=== PATIENT | female | born 1995 | race Caucasian/White ===

== ENCOUNTER 2021-12-09 10:21 | Emergency (ER) | payer OTHER ==
[2021-12-09 10:29] VITALS: TEMP 98.6; BMI 28.1
[2021-12-09] MEDS ORDERED: ONDANSETRON 4 MG/2 ML VIAL IVPUSH ONE (11:43)
[2021-12-09] MEDS ORDERED: SODIUM CHLORIDE 0.9% 500 ML INFUS.BAG IV ONE (11:47)
[2021-12-09 11:54] LABS: URINE APPEARANCE CLEAR; URINE BILIRUBIN NEGATIVE (NEGATIVE); URINE COLOR YELLOW; URINE GLUCOSE (UA) NEGATIVE (NEGATIVE); URINE KETONE TRACE (NEGATIVE); URINE LEUK ESTERASE NEGATIVE (NEGATIVE); URINE NITRITE NEGATIVE (NEGATIVE); URINE PROTEIN NEGATIVE (NEGATIVE)
[2021-12-09 11:58] LABS: HCG,QUALITATIVE URINE Positive
[2021-12-09] MEDS ORDERED: ACETAMINOPHEN 1000 MG/100 ML BAG IVPB ONE (11:58)
[2021-12-09] MEDS ORDERED: ACETAMINOPHEN INJECTION 100 ML IVPB ONE (11:59)
[2021-12-09] MEDS ORDERED: ONDANSETRON 4 MG/2 ML VIAL ONE (12:00)
[2021-12-09 12:33] LABS: BASO % 0.3 % (0-2.0); EOS % 0.6 % (0-4.5); HEMATOCRIT 35.6 % (32.4-45.2); HEMOGLOBIN 11.8 GM/dL (10.7-15.3); LYMPH % 26.3 % (8-40); MCH 31.4 pg (25.7-33.7); MCHC 33.2 g/dl (32.0-36.0); MEAN CELL VOLUME 94.4 fl (80-96); MONO % 8.2 % (3.8-10.2); NEUT % 64.6 % (42.8-82.8); PLATELET COUNT 237 10^3/uL (134-434); RBC 3.77 M/mm3 (3.60-5.2); RDW 13.2 % (11.6-15.6); WHITE BLOOD COUNT 4.2 K/mm3 (4.0-10.0)
[2021-12-09 12:54] LABS: CALCIUM 8.8 mg/dL (8.5-10.1)
[2021-12-09 12:55] LABS: ALBUMIN 3.6 g/dl (3.4-5.0); BLOOD UREA NITROGEN 7.5 mg/dL (7-18)
[2021-12-09 12:58] LABS: CREATININE 0.7 mg/dL (0.55-1.3)
[2021-12-09 13:00] LABS: BILIRUBIN,TOTAL 0.3 mg/dL (0.2-1)
[2021-12-09 15:03] VITALS: BP 112/70; PULSE 90
== END 2021-12-09 15:03 | disposition home or self-care (01) ==
LOC: JER 10:21
PROC: 3E033GC Introduction of Other Therapeutic Substance into Peripheral Vein, Percutaneous Approach (ICD-10-PCS; principal; 2021-12-09)
DX: O36.4XX0 Maternal care for intrauterine death, not applicable or unspecified (principal); Z3A.09 9 weeks gestation of pregnancy
CPT/HCPCS: 36415; 76801-TC; 80053; 81003; 84702; 84703; 85025; 86850; 86900; 86901; 87086; 99284-25

== ENCOUNTER 2021-12-13 02:22 | Inpatient (IN) | payer OTHER ==
[2021-12-13 02:45] VITALS: BMI 28.3
[2021-12-13] MEDS ORDERED: SODIUM CHLORIDE 2,245 ML IV ONE (02:48)
[2021-12-13] MEDS ORDERED: ACETAMINOPHEN 1000 MG/100 ML BAG IVPB ONE ×3 (02:50→13:45)
[2021-12-13] MEDS ORDERED: AMPICILLIN - 1 GM in SODIUM CHLORIDE 100 ML IVPB ONE (03:06)
[2021-12-13] MEDS ORDERED: GENTAMICIN 80 MG PREMIXED IVPB 80 MG/100 ML BAG IVPB ONE ×2 (03:07→03:25)
[2021-12-13] MEDS ORDERED: CLINDAMYCIN 600MG PREMIX IVPB 600 MG/50 ML BAG IVPB ONE ×2 (03:07→03:25)
[2021-12-13] MEDS ORDERED: DIPHTH,PERTUSS(ACELL),TET 0.5 ML DISP.SYRIN IM ONE ×2 (03:22→04:27)
[2021-12-13] MEDS ORDERED: ACETAMINOPHEN INJECTION 100 ML IVPB ONE ×2 (03:24→10:02)
[2021-12-13] MEDS ORDERED: AMPICILLIN SODIUM 1 GM VIAL ONE (03:24)
[2021-12-13 03:50] LABS: BASO % 0.1 % (0-2.0); EOS % 0.4 % (0-4.5); HEMATOCRIT 33.5 % (32.4-45.2); HEMOGLOBIN 11.6 GM/dL (10.7-15.3); LYMPH % 4.8 % (8-40); MCH 32.1 pg (25.7-33.7); MCHC 34.5 g/dl (32.0-36.0); MEAN CELL VOLUME 92.9 fl (80-96); MEAN PLT VOLUME 8.6 fl (7.5-11.1); MONO % 10.3 % (3.8-10.2); NEUT % 84.4 % (42.8-82.8); PLATELET COUNT 186 10^3/uL (134-434); RBC 3.61 M/mm3 (3.60-5.2); RDW 13.4 % (11.6-15.6); WHITE BLOOD COUNT 3.8 K/mm3 (4.0-10.0)
[2021-12-13 03:58] LABS: INR 1.16 (0.83-1.09); PROTHROMBIN TIME (PATIENT) 13.4 SEC (9.7-13.0)
[2021-12-13 04:01] LABS: ACTIVATED PTT 26.9 SECONDS (25.2-36.5)
[2021-12-13 04:08] LABS: CHLORIDE 108 mmol/L (98-107); SODIUM 137 mmol/L (136-145)
[2021-12-13 04:09] LABS: CALCIUM 8.2 mg/dL (8.5-10.1)
[2021-12-13 04:10] LABS: ALBUMIN 3.3 g/dl (3.4-5.0); ANION GAP 6 MMOL/L (8-16); CO2 23 mmol/L (21-32); GLUCOSE,RANDOM 93 mg/dL (74-106)
[2021-12-13 04:13] LABS: CREATININE 0.6 mg/dL (0.55-1.3); SGOT/AST 8 U/L (15-37); SGPT/ALT 16 U/L (13-61)
[2021-12-13 04:15] LABS: BILIRUBIN,TOTAL 0.2 mg/dL (0.2-1); TOT PROT 6.5 g/dl (6.4-8.2)
[2021-12-13 04:16] LABS: ALK PHOS 57 U/L (45-117)
[2021-12-13 04:26] LABS: VENOUS BASE EXCESS -4.6 mmol/L (-2-2); VENOUS O2 SATURATION 66.4 % (70-80); VENOUS PCO2 38.3 mmHg (38-52); VENOUS PH 7.348 (7.310-7.410)
[2021-12-13 05:45] LABS: PH,URINE 6.5 (5.0-8.0); URINE APPEARANCE CLEAR; URINE BILIRUBIN NEGATIVE (NEGATIVE); URINE COLOR YELLOW; URINE GLUCOSE (UA) NEGATIVE (NEGATIVE); URINE KETONE NEGATIVE (NEGATIVE); URINE LEUK ESTERASE NEGATIVE (NEGATIVE); URINE NITRITE NEGATIVE (NEGATIVE); URINE PROTEIN NEGATIVE (NEGATIVE)
[2021-12-13] MEDS ORDERED: METOCLOPRAMIDE HCL INJECTION 10 MG/2 ML VIAL ONE (09:39)
[2021-12-13] MEDS ORDERED: MAG HYDROX/AL HYDROX/SIMETH 30 ML UNIT-DOSE CUP ONE (09:40)
[2021-12-13] MEDS ORDERED: FAMOTIDINE 20 MG/50 ML IVPB 20 MG/50 ML MG IVPB ONE (09:40)
[2021-12-13] MEDS ORDERED: LACTATED RINGERS SOLUTION 1,000 ML/1,000 ML INFUS.BAG IV SCH (10:30)
[2021-12-13] MEDS ORDERED: AMPICILLIN - 1 GM in SODIUM CHLORIDE 100 ML IVPB SCH (12:00)
[2021-12-13] MEDS ORDERED: MIDAZOLAM HCL 2 MG/2 ML SINGLE DOSE VIAL ONE ×2 (12:11→12:27)
[2021-12-13] MEDS ORDERED: CLINDAMYCIN 600MG PREMIX IVPB 600 MG/50 ML BAG IVPB SCH (12:30)
[2021-12-13] MEDS ORDERED: CLINDAMYCIN 600 MG PREMIX BAG IVPB ONE (12:31)
[2021-12-13] MEDS ORDERED: ACETAMINOPHEN 325 MG TABLET (FP) PO PRN (12:55)
[2021-12-13] MEDS ORDERED: ONDANSETRON 4 MG/2 ML VIAL IVPUSH PRN (12:55)
[2021-12-13] MEDS ORDERED: oxyCODONE HCL 5 MG TABLET PO PRN (12:57)
[2021-12-13] MEDS ORDERED: LACTATED RINGERS SOLUTION 1,000 ML IV SCH ×2 (13:00→13:02)
[2021-12-13] MEDS: IBUPROFEN 600 MG TABLET (FP) PO PRN (17:03)
[2021-12-13] MEDS: CLINDAMYCIN 900 MG PREMIX IVPB 900 MG/50 ML BAG IVPB SCH (18:12)
[2021-12-13] MEDS ORDERED: AMPICILLIN SODIUM 2 GM VIAL ONE (20:42)
[2021-12-13] MEDS ORDERED: SODIUM CHLORIDE 100 ML IVPB ONE (20:42)
[2021-12-13] MEDS: AMPICILLIN - 2 GM in SODIUM CHLORIDE 100 ML IVPB SCH (20:47)
[2021-12-14] MEDS: IBUPROFEN 600 MG TABLET (FP) PO PRN ×3 (01:21→19:36)
[2021-12-14] MEDS: CLINDAMYCIN 900 MG PREMIX IVPB 900 MG/50 ML BAG IVPB SCH ×3 (01:21→18:29)
[2021-12-14] MEDS ORDERED: AMPICILLIN SODIUM 2 GM VIAL ONE ×4 (03:13→20:26)
[2021-12-14] MEDS ORDERED: SODIUM CHLORIDE 100 ML IVPB ONE ×4 (03:13→20:27)
[2021-12-14] MEDS: AMPICILLIN - 2 GM in SODIUM CHLORIDE 100 ML IVPB SCH ×4 (03:16→20:40)
[2021-12-14 07:57] LABS: BASO % 0.3 % (0-2.0); EOS % 0.3 % (0-4.5); HEMATOCRIT 34.1 % (32.4-45.2); HEMOGLOBIN 11.7 GM/dL (10.7-15.3); LYMPH % 33.6 % (8-40); MCH 31.9 pg (25.7-33.7); MCHC 34.3 g/dl (32.0-36.0); MEAN CELL VOLUME 93.1 fl (80-96); MEAN PLT VOLUME 8.7 fl (7.5-11.1); MONO % 14.3 % (3.8-10.2); NEUT % 51.5 % (42.8-82.8); PLATELET COUNT 202 10^3/uL (134-434); RBC 3.66 M/mm3 (3.60-5.2); RDW 13.4 % (11.6-15.6); WHITE BLOOD COUNT 2.8 K/mm3 (4.0-10.0)
[2021-12-14] MEDS ORDERED: GENTAMICIN IVPB SCH (10:00)
[2021-12-14] MEDS ORDERED: DEXTROSE 5% IVPB SCH (10:00)
[2021-12-14] MEDS ORDERED: WATER IVPB SCH (10:00)
[2021-12-14] MEDS: GENTAMICIN IVPB SCH (10:46)
[2021-12-14] MEDS: WATER IVPB SCH (10:46)
[2021-12-14] MEDS: DEXTROSE 5% IVPB SCH (10:46)
[2021-12-15] MEDS ORDERED: AMPICILLIN SODIUM 2 GM VIAL ONE (00:56)
[2021-12-15] MEDS ORDERED: SODIUM CHLORIDE 100 ML IVPB ONE (00:56)
[2021-12-15] MEDS: CLINDAMYCIN 900 MG PREMIX IVPB 900 MG/50 ML BAG IVPB SCH ×2 (01:36→09:01)
[2021-12-15] MEDS: AMPICILLIN - 2 GM in SODIUM CHLORIDE 100 ML IVPB SCH ×2 (02:16→09:01)
[2021-12-15 09:00] VITALS: BP 100/68; PULSE 88; TEMP 98.8
[2021-12-15] MEDS: DEXTROSE 5% IVPB SCH (09:01)
[2021-12-15] MEDS: GENTAMICIN IVPB SCH (09:01)
[2021-12-15] MEDS: WATER IVPB SCH (09:01)
== END 2021-12-15 09:58 | disposition home or self-care (01) | DRG 544 ==
LOC: JER 02:22 → JERBED 03:35 → J3W 14:40
PROVIDERS: ADMIT Obstetrics & Gynecology; ATTEND Obstetrics & Gynecology
PROC: 10D17ZZ Extraction of Products of Conception, Retained, Via Natural or Artificial Opening (ICD-10-PCS; principal; 2021-12-13 10:00)
DX: O02.1 Missed abortion (principal); R50.9 Fever, unspecified; U07.1 COVID-19; Z3A.10 10 weeks gestation of pregnancy
CPT/HCPCS: 36415; 71045-TC-FY; 76817-TC; 80053; 81003; 82553; 82803; 83605; 85025; 85610; 85730; 86850; 86900; 86901; 87040; 87086; 88305-TC; 90715; 93005; 93010; 94760; 99285-25; C9803-CS; U0003; U0005

== ENCOUNTER 2022-07-14 13:39 | Emergency (ER) | payer OTHER ==
[2022-07-14 14:08] VITALS: BP 107/79; PULSE 109; RESP 19; TEMP 98.8; BMI 29.2
== END 2022-07-14 20:45 | disposition home or self-care (01) ==
LOC: JER 13:39
DX: B34.9 Viral infection, unspecified (principal)
CPT/HCPCS: 0241U-QW; 99283-25

== ENCOUNTER 2022-07-19 01:53 | Emergency (ER) | payer OTHER ==
[2022-07-19 02:03] VITALS: BP 134/89; PULSE 88; RESP 20; TEMP 98.3; BMI 32.5
[2022-07-19] MEDS ORDERED: ERYTHROMYCIN 0.5% OPHTHALMIC OINTMENT 3.5 GM TUBE OU ONE (02:27)
[2022-07-19] MEDS ORDERED: ERYTHROMYCIN 0.5% OPHTHALMIC OINTMENT 3.5 GM TUBE ONE (02:35)
[2022-07-19 04:05] LABS: EPI CELLS 33 /uL (0-25.1); HYALINE CASTS 0 /uL (0-3.1); URINE APPEARANCE CLEAR; URINE BACTERIA 234 /uL (0-1359); URINE BILIRUBIN NEGATIVE (NEGATIVE); URINE COLOR YELLOW; URINE GLUCOSE (UA) NEGATIVE (NEGATIVE); URINE KETONE NEGATIVE (NEGATIVE); URINE LEUK ESTERASE TRACE (NEGATIVE); URINE NITRITE NEGATIVE (NEGATIVE); URINE PROTEIN NEGATIVE (NEGATIVE); URINE RBC 8 /uL (0-23.9); URINE UROBILINOGEN 0.2 mg/dL (0.2-1.0); URINE WBC 20 /uL (0-25.8)
[2022-07-19] MEDS ORDERED: CEPHALEXIN MONOHYDRATE 500 MG CAPSULE (UD) ONE (04:40)
[2022-07-19] MEDS ORDERED: CEPHALEXIN MONOHYDRATE 500 MG CAPSULE (UD) PO ONE (04:40)
== END 2022-07-19 04:44 | disposition home or self-care (01) ==
LOC: JER 01:53
DX: H10.33 Unspecified acute conjunctivitis, bilateral (principal)
CPT/HCPCS: 0241U-QW; 81003; 87086; 99283-25

== ENCOUNTER 2022-08-01 04:20 | Emergency (ER) | payer OTHER ==
[2022-08-01 04:25] VITALS: BMI 34.0
[2022-08-01] MEDS ORDERED: ONDANSETRON 4 MG/2 ML VIAL IVPUSH ONE (04:47)
[2022-08-01] MEDS ORDERED: ACETAMINOPHEN 1000 MG/100 ML BAG IVPB ONE (04:47)
[2022-08-01] MEDS ORDERED: SODIUM CHLORIDE 0.9% 500 ML INFUS.BAG IV ONE (04:47)
[2022-08-01] MEDS ORDERED: ONDANSETRON 4 MG/2 ML VIAL ONE (04:53)
[2022-08-01] MEDS ORDERED: ACETAMINOPHEN INJECTION 100 ML IVPB ONE (04:53)
[2022-08-01] MEDS ORDERED: DEXTROSE 5%-LACTATED RINGERS 1,000 ML IV ONE (05:30)
[2022-08-01 05:51] VITALS: BP 132/72; PULSE 65; RESP 18; TEMP 98
== END 2022-08-01 07:36 | disposition home or self-care (01) ==
LOC: JER 04:20
PROC: 3E033NZ Introduction of Analgesics, Hypnotics, Sedatives into Peripheral Vein, Percutaneous Approach (ICD-10-PCS; principal; 2022-08-01)
PROC: 3E033GC Introduction of Other Therapeutic Substance into Peripheral Vein, Percutaneous Approach (ICD-10-PCS; 2022-08-01)
DX: R11.2 Nausea with vomiting, unspecified (principal)
CPT/HCPCS: 99284-25

== ENCOUNTER 2022-09-03 03:35 | Inpatient (IN) | payer OTHER ==
[2022-09-03] MEDS: ELECTROLYTE-148 SOLN 1,000 ML IV SCH (03:55)
[2022-09-03] MEDS ORDERED: ACETAMINOPHEN INJECTION 100 ML IVPB ONE (04:06)
[2022-09-03] MEDS ORDERED: OXYTOCIN 20 UNITS in 0.9% NS 20 UNIT/1,000 ML INFUS.BAG IV ONE ×2 (04:06→16:24)
[2022-09-03] MEDS ORDERED: PROPOFOL 40 ML ONE (04:14)
[2022-09-03] MEDS ORDERED: OXYTOCIN 10 UNITS/ML VIAL ONE (04:24)
[2022-09-03] MEDS: OXYTOCIN 20 UNITS in 0.9% NS 20 UNIT/1,000 ML INFUS.BAG IV SCH ×2 (04:25→16:26)
[2022-09-03] MEDS ORDERED: FENTANYL CITRATE/PF 50 MCG/ML VIAL ONE ×2 (04:28→05:05)
[2022-09-03] MEDS ORDERED: ceFAZolin SODIUM 1 GM VIAL ONE (04:32)
[2022-09-03] MEDS ORDERED: DEXAMETHASONE SOD PHOSPHATE 4 MG/1 ML VIAL ONE (04:43)
[2022-09-03] MEDS ORDERED: ONDANSETRON 4 MG/2 ML VIAL ONE (04:43)
[2022-09-03 04:52] LABS: BASO % 0.5 % (0-2.0); EOS % 0.6 % (0-4.5); HEMATOCRIT 39.2 % (32.4-45.2); HEMOGLOBIN 13.3 GM/dL (10.7-15.3); LYMPH % 25.5 % (8-40); MCH 31.3 pg (25.7-33.7); MCHC 33.8 g/dl (32.0-36.0); MEAN CELL VOLUME 92.5 fl (80-96); MEAN PLT VOLUME 11.1 fl (7.5-11.1); MONO % 8.1 % (3.8-10.2); NEUT % 65.3 % (42.8-82.8); PLATELET COUNT 151 10^3/uL (134-434); RBC 4.24 M/mm3 (3.60-5.2); RDW 14.3 % (11.6-15.6); WHITE BLOOD COUNT 6.1 K/mm3 (4.0-10.0)
[2022-09-03 05:00] LABS: INR 0.85 (0.83-1.09); PROTHROMBIN TIME (PATIENT) 9.8 SEC (9.7-13.0)
[2022-09-03 05:03] LABS: ACTIVATED PTT 25.2 SECONDS (25.2-36.5)
[2022-09-03 05:12] LABS: CALCIUM 8.5 mg/dL (8.5-10.1)
[2022-09-03 05:13] LABS: BLOOD UREA NITROGEN 3.8 mg/dL (7-18)
[2022-09-03 05:16] LABS: CREATININE 0.6 mg/dL (0.55-1.3)
[2022-09-03 05:20] LABS: CALCIUM 8.4 mg/dL (8.5-10.1)
[2022-09-03] MEDS ORDERED: ONDANSETRON 4 MG/2 ML VIAL IVPUSH PRN (05:20)
[2022-09-03 05:21] LABS: ALBUMIN 2.4 g/dl (3.4-5.0); BLOOD UREA NITROGEN 3.5 mg/dL (7-18)
[2022-09-03 05:24] LABS: CREATININE 0.5 mg/dL (0.55-1.3)
[2022-09-03 05:25] LABS: BILIRUBIN,TOTAL 0.2 mg/dL (0.2-1); TOT PROT 5.9 g/dl (6.4-8.2)
[2022-09-03] MEDS ORDERED: LABETALOL HCL 5 MG/1 ML (100MG/20 ML VIAL) IVPUSH ONE (05:40)
[2022-09-03] MEDS: HYDROmorphone *PCA* 10MG/50ML DISP.SYRIN PCA SCH ×2 (05:45→08:30)
[2022-09-03] MEDS ORDERED: IBUPROFEN 800 MG/8 ML IJ IVPB PRN (05:50)
[2022-09-03] MEDS ORDERED: METHYLERGONOVINE MALEATE 0.2 MG/1 ML AMP IM PRN (05:50)
[2022-09-03] MEDS: MAGNESIUM 4GM/H20 - 4 GM/100 ML IVPB IVPB SCH (05:53)
[2022-09-03] MEDS ORDERED: hydrALAZINE HCL 20 MG/ML VIAL IVPUSH ONE (06:12)
[2022-09-03] MEDS: MAGNESIUM SULFATE 20GM/500ML - 20 GM/500 ML INFUS.BAG IVPB SCH ×2 (06:20→18:24)
[2022-09-03 06:24] LABS: CORD HCO3 22.3 mmHg (20-29); CORD PCO2 86.5 mmHg (30-78); CORD pH 7.029 (7.14-7.44)
[2022-09-03 06:25] VITALS: BMI 34.8
[2022-09-03 06:25] LABS: CORD BASE EXCESS -9.9 mmol/L (0-2); CORD HCO3 21.9 mmHg (20-29); CORD pH 7.067 (7.14-7.44)
[2022-09-03] MEDS ORDERED: MAGNESIUM SULFATE 20GM/500ML - 20 GM/500 ML INFUS.BAG ONE ×2 (06:26→18:13)
[2022-09-03] MEDS: LABETALOL HCL 100 MG TABLET (FP) PO SCH ×3 (06:30→22:00)
[2022-09-03 06:32] LABS: COCAINE, UR NEGATIVE (NEGATIVE); OPIATES, URI NEGATIVE (NEGATIVE); URINE BARBITURATES NEGATIVE (NEGATIVE)
[2022-09-03 06:33] LABS: METHADONE, UR NEGATIVE (NEGATIVE); PHENCYCLIDINE,URINE NEGATIVE (NEGATIVE)
[2022-09-03] MEDS ORDERED: LABETALOL HCL 100 MG TABLET (FP) ONE ×3 (06:36→22:12)
[2022-09-03] MEDS ORDERED: LABETALOL HCL 200 MG TABLET (FP) ONE ×2 (06:36→10:08)
[2022-09-03 07:00] LABS: URINE AMPHETAMINES NEGATIVE (NEGATIVE); URINE BENZODIAZEPINES NEGATIVE (NEGATIVE)
[2022-09-03] MEDS ORDERED: IBUPROFEN 800 MG/8 ML IJ IVPB ONE (07:48)
[2022-09-03] MEDS ORDERED: HYDROmorphone *PCA* 10MG/50ML DISP.SYRIN ONE (08:28)
[2022-09-03] MEDS ORDERED: ACETAMINOPHEN 325 MG TABLET (FP) ONE ×2 (12:48→20:30)
[2022-09-03 12:50] LABS: MAGNESIUM 5.4 mg/dL (1.8-2.4)
[2022-09-03] MEDS: ACETAMINOPHEN 325 MG TABLET (FP) PO PRN ×2 (12:50→20:30)
[2022-09-04] MEDS ORDERED: oxyCODONE HCL 5 MG TABLET ONE (04:18)
[2022-09-04] MEDS: oxyCODONE HCL 5 MG TABLET PO PRN ×3 (04:27→21:25)
[2022-09-04] MEDS ORDERED: BISACODYL 10 MG SUPP.RECT RC PRN (05:50)
[2022-09-04] MEDS: ACETAMINOPHEN 325 MG TABLET (FP) PO PRN (06:24)
[2022-09-04] MEDS: MAGNESIUM SULFATE 20GM/500ML - 20 GM/500 ML INFUS.BAG IVPB SCH ×3 (06:26→19:32)
[2022-09-04 07:12] LABS: BASO % 0.2 % (0-2.0); EOS % 0.1 % (0-4.5); HEMATOCRIT 36.3 % (32.4-45.2); HEMOGLOBIN 12.3 GM/dL (10.7-15.3); LYMPH % 9.5 % (8-40); MCH 31.3 pg (25.7-33.7); MCHC 33.8 g/dl (32.0-36.0); MEAN CELL VOLUME 92.6 fl (80-96); MEAN PLT VOLUME 10.2 fl (7.5-11.1); MONO % 5.3 % (3.8-10.2); NEUT % 84.9 % (42.8-82.8); PLATELET COUNT 153 10^3/uL (134-434); RBC 3.92 M/mm3 (3.60-5.2); RDW 14.5 % (11.6-15.6)
[2022-09-04] MEDS: LABETALOL HCL 100 MG TABLET (FP) PO SCH ×2 (09:09→21:24)
[2022-09-04] MEDS: IBUPROFEN 600 MG TABLET (FP) PO PRN ×2 (09:09→23:43)
[2022-09-04] MEDS: ELECTROLYTE-148 SOLN 1,000 ML IV SCH (19:32)
[2022-09-04] MEDS: OXYTOCIN 20 UNITS in 0.9% NS 20 UNIT/1,000 ML INFUS.BAG IV SCH (19:32)
[2022-09-04] MEDS: HYDROmorphone *PCA* 10MG/50ML DISP.SYRIN PCA SCH (19:32)
[2022-09-04] MEDS: MAGNESIUM 4GM/H20 - 4 GM/100 ML IVPB IVPB SCH (19:32)
[2022-09-04] MEDS: SIMETHICONE 80 MG TAB.CHEW (FP) PO PRN (21:25)
[2022-09-05] MEDS: oxyCODONE HCL 5 MG TABLET PO PRN ×4 (02:05→22:05)
[2022-09-05] MEDS: LABETALOL HCL 100 MG TABLET (FP) PO SCH ×2 (09:39→22:04)
[2022-09-05] MEDS: SIMETHICONE 80 MG TAB.CHEW (FP) PO PRN ×2 (15:48→22:05)
[2022-09-05] MEDS: IBUPROFEN 600 MG TABLET (FP) PO PRN (17:26)
[2022-09-05] MEDS: ELECTROLYTE-148 SOLN 1,000 ML IV SCH (19:27)
[2022-09-06] MEDS: LABETALOL HCL 100 MG TABLET (FP) PO SCH ×2 (09:15→21:35)
[2022-09-06] MEDS: SIMETHICONE 80 MG TAB.CHEW (FP) PO PRN ×2 (09:16→21:35)
[2022-09-06 09:25] LABS: BASO % 0.3 % (0-2.0); EOS % 0.4 % (0-4.5); HEMATOCRIT 36.2 % (32.4-45.2); HEMOGLOBIN 12.4 GM/dL (10.7-15.3); LYMPH % 17.1 % (8-40); MCH 31.6 pg (25.7-33.7); MCHC 34.2 g/dl (32.0-36.0); MEAN CELL VOLUME 92.6 fl (80-96); MEAN PLT VOLUME 9.6 fl (7.5-11.1); MONO % 5.7 % (3.8-10.2); NEUT % 76.5 % (42.8-82.8); PLATELET COUNT 183 10^3/uL (134-434); RBC 3.91 M/mm3 (3.60-5.2); RDW 14.9 % (11.6-15.6); WHITE BLOOD COUNT 8.7 K/mm3 (4.0-10.0)
[2022-09-06] MEDS: IBUPROFEN 600 MG TABLET (FP) PO PRN ×2 (14:30→21:36)
[2022-09-07 04:46] VITALS: PULSE 88
[2022-09-07] MEDS: LABETALOL HCL 100 MG TABLET (FP) PO SCH (10:53)
[2022-09-07 12:53] VITALS: BP 141/93; RESP 17; TEMP 98.8
== END 2022-09-07 13:50 | disposition home or self-care (01) | DRG 540 ==
LOC: JDEL 03:35 → JLDR 03:50 → J3W 09-04 08:27
PROVIDERS: ADMIT Student in an Organized Health Care Education/Training Program; ATTEND Student in an Organized Health Care Education/Training Program
PROC: 10D00Z1 Extraction of Products of Conception, Low, Open Approach (ICD-10-PCS; principal; 2022-09-03)
DX: O14.94 Unspecified pre-eclampsia, complicating childbirth (principal); O45.8X3 Other premature separation of placenta, third trimester; O76 Abnormality in fetal heart rate and rhythm complicating labor and delivery; Z3A.33 33 weeks gestation of pregnancy; Z37.0 Single live birth
CPT/HCPCS: 36415; 36600; 80048; 80053; 80307; 82570; 82803; 83735; 84156; 85025; 85610; 85730; 86780; 86850; 86900; 86901; 88307-TC; C9803-CS; U0003; U0005

== ENCOUNTER 2022-11-14 06:28 | Emergency (ER) | payer OTHER ==
[2022-11-14 06:38] VITALS: BP 118/70; PULSE 84; RESP 18; TEMP 98.2; BMI 31.9
[2022-11-14] MEDS ORDERED: ACETAMINOPHEN 1000 MG/100 ML BAG IVPB ONE (07:51)
[2022-11-14] MEDS ORDERED: ACETAMINOPHEN INJECTION 100 ML IVPB ONE (08:25)
[2022-11-14 08:36] LABS: EPI CELLS 27 /uL (0-25.1); HYALINE CASTS 4 /uL (0-3.1); PH,URINE 5.5 (5.0-8.0); URINE APPEARANCE CLEAR; URINE BACTERIA 41 /uL (0-1359); URINE BILIRUBIN NEGATIVE (NEGATIVE); URINE COLOR YELLOW; URINE GLUCOSE (UA) NEGATIVE (NEGATIVE); URINE KETONE NEGATIVE (NEGATIVE); URINE LEUK ESTERASE NEGATIVE (NEGATIVE); URINE NITRITE NEGATIVE (NEGATIVE); URINE PROTEIN 2+ (NEGATIVE); URINE RBC 5 /uL (0-23.9); URINE UROBILINOGEN 0.2 mg/dL (0.2-1.0); URINE WBC 7 /uL (0-25.8)
[2022-11-14 09:27] LABS: BASO % 0.7 % (0-2.0); EOS % 0.9 % (0-4.5); HEMATOCRIT 37.2 % (32.4-45.2); HEMOGLOBIN 12.6 GM/dL (10.7-15.3); LYMPH % 25.6 % (8-40); MCH 30.9 pg (25.7-33.7); MCHC 33.9 g/dl (32.0-36.0); MEAN CELL VOLUME 91.1 fl (80-96); MEAN PLT VOLUME 9.4 fl (7.5-11.1); MONO % 6.3 % (3.8-10.2); NEUT % 66.5 % (42.8-82.8); PLATELET COUNT 243 10^3/uL (134-434); RBC 4.08 M/mm3 (3.60-5.2); RDW 13.7 % (11.6-15.6); WHITE BLOOD COUNT 4.8 K/mm3 (4.0-10.0)
[2022-11-14 09:54] LABS: ALBUMIN 3.4 g/dl (3.4-5.0); BLOOD UREA NITROGEN 6.4 mg/dL (7-18); CALCIUM 8.7 mg/dL (8.5-10.1)
[2022-11-14 09:58] LABS: CREATININE 0.6 mg/dL (0.55-1.3)
[2022-11-14 09:59] LABS: BILIRUBIN,TOTAL 0.4 mg/dL (0.2-1); TOT PROT 7.1 g/dl (6.4-8.2)
== END 2022-11-14 11:52 | disposition home or self-care (01) ==
LOC: JER 06:28
PROC: 3E033GC Introduction of Other Therapeutic Substance into Peripheral Vein, Percutaneous Approach (ICD-10-PCS; principal; 2022-11-14)
DX: O26.891 Other specified pregnancy related conditions, first trimester (principal); R10.2 Pelvic and perineal pain; Z3A.01 Less than 8 weeks gestation of pregnancy
CPT/HCPCS: 36415; 76817-TC; 80053; 81003; 84702; 85025; 86850; 86900; 86901; 87086; 99284-25

== ENCOUNTER 2023-01-28 02:16 | Emergency (ER) | payer OTHER ==
[2023-01-28 02:28] VITALS: BP 130/82; PULSE 114; RESP 18; TEMP 98; BMI 74.9
[2023-01-28] MEDS ORDERED: MAGNESIUM SULF 50% (8.12 MEQ/2 ML-1 GM VIAL) IVPB ONE (03:27)
[2023-01-28] MEDS ORDERED: ALBUTEROL SO4 2.5/IPRATROPIUM 0.5 INH SOL 3 ML VIAL.NEB. NEB ONE ×2 (03:29→03:32)
[2023-01-28] MEDS: ALBUTEROL SO4 2.5/IPRATROPIUM 0.5 INH SOL 3 ML VIAL.NEB. NEB SCH ×3 (03:41→04:03)
[2023-01-28] MEDS ORDERED: MAGNESIUM SULFATE IN WATER 2 GM/50 ML IVPB IVPB ONE (03:42)
[2023-01-28] MEDS ORDERED: methylPREDNISolone NA SUCC 125 MG/2 ML VIAL IVPUSH ONE (03:49)
[2023-01-28 03:50] LABS: BASO % 0.4 % (0-2.0); EOS % 5.4 % (0-4.5); HEMATOCRIT 36.2 % (32.4-45.2); HEMOGLOBIN 12.7 GM/dL (10.7-15.3); MCH 31.6 pg (25.7-33.7); MEAN CELL VOLUME 90.1 fl (80-96); MEAN PLT VOLUME 8.9 fl (7.5-11.1); NEUT % 67.2 % (42.8-82.8); PLATELET COUNT 220 10^3/uL (134-434); RBC 4.02 M/mm3 (3.60-5.2); RDW 13.7 % (11.6-15.6)
[2023-01-28] MEDS ORDERED: methylPREDNISolone NA SUCC 125 MG/2 ML VIAL ONE (04:01)
[2023-01-28 04:11] LABS: POTASSIUM 4.3 mmol/L (3.5-5.1)
[2023-01-28 04:13] LABS: ALBUMIN 3.2 g/dl (3.4-5.0); CALCIUM 8.7 mg/dL (8.5-10.1); MAGNESIUM 1.9 mg/dL (1.8-2.4)
[2023-01-28 04:14] LABS: BLOOD UREA NITROGEN 6.4 mg/dL (7-18)
[2023-01-28 04:16] LABS: CREATININE 0.5 mg/dL (0.55-1.3)
[2023-01-28 04:18] LABS: BILIRUBIN,TOTAL 0.2 mg/dL (0.2-1)
== END 2023-01-28 05:54 | disposition home or self-care (01) ==
LOC: JER 02:16
PROC: 3E033GC Introduction of Other Therapeutic Substance into Peripheral Vein, Percutaneous Approach (ICD-10-PCS; principal; 2023-01-28)
PROC: 3E033GC Introduction of Other Therapeutic Substance into Peripheral Vein, Percutaneous Approach (ICD-10-PCS; 2023-01-28)
PROC: 3E0F7GC Introduction of Other Therapeutic Substance into Respiratory Tract, Via Natural or Artificial Opening (ICD-10-PCS; 2023-01-28)
DX: O99.512 Diseases of the respiratory system complicating pregnancy, second trimester (principal); J45.901 Unspecified asthma with (acute) exacerbation; Z3A.16 16 weeks gestation of pregnancy; Z20.822 Contact with and (suspected) exposure to COVID-19
CPT/HCPCS: 0241U-QW; 36415; 80053; 83735; 85025; 93005; 93010; 99284-25

== ENCOUNTER → 2023-02-21 | Emergency (ER) | payer OTHER ==
[~2023-02-21] MED LIST: ACETAMINOPHEN 325 MG TABLET (FP) ONE; ACETAMINOPHEN 500 MG TABLET (FP) ONE; ACETAMINOPHEN 500 MG TABLET (FP) PO ONE; OSELTAMIVIR PHOSPHATE 75 MG CAPSULE ONE; OSELTAMIVIR PHOSPHATE 75 MG CAPSULE PO ONE
[2023-02-21 06:11] VITALS: BMI 34.4
[2023-02-21 08:13] VITALS: BP 109/64; RESP 16
[2023-02-21 08:28] LABS: EPI CELLS 15 /uL (0-25.1); HYALINE CASTS 0 /uL (0-3.1); URINE APPEARANCE CLEAR; URINE BACTERIA 208 /uL (0-1359); URINE BILIRUBIN NEGATIVE (NEGATIVE); URINE COLOR YELLOW; URINE GLUCOSE (UA) NEGATIVE (NEGATIVE); URINE KETONE TRACE (NEGATIVE); URINE LEUK ESTERASE NEGATIVE (NEGATIVE); URINE NITRITE NEGATIVE (NEGATIVE); URINE PROTEIN 1+ (NEGATIVE); URINE RBC 20 /uL (0-23.9); URINE UROBILINOGEN 0.2 mg/dL (0.2-1.0); URINE WBC 4 /uL (0-25.8)
[2023-02-21 08:57] VITALS: PULSE 115; TEMP 99.6
== END | disposition home or self-care (01) ==
LOC: JER 06:05
DX: O26.892 Other specified pregnancy related conditions, second trimester (principal); R50.9 Fever, unspecified; M79.10 Myalgia, unspecified site; R05.9 Cough, unspecified; R09.81 Nasal congestion; R53.81 Other malaise; R42 Dizziness and giddiness; O99.512 Diseases of the respiratory system complicating pregnancy, second trimester; J10.1 Influenza due to other identified influenza virus with other respiratory manifestations; Z3A.18 18 weeks gestation of pregnancy; Z20.822 Contact with and (suspected) exposure to COVID-19
CPT/HCPCS: 0241U-QW; 81003; 87086; 99283-25

== ENCOUNTER 2023-05-02 09:39 | Inpatient (IN) | payer OTHER ==
[2023-05-02 10:12] VITALS: RESP 17
[2023-05-02 11:27] VITALS: TEMP 98.5; BMI 36.0
[2023-05-02 12:31] LABS: RETICULOCYTES 2.22 % (0.5-1.5)
[2023-05-02 12:33] LABS: BASO % 0.6 % (0-2.0); EOS % 0.2 % (0-4.5); HEMATOCRIT 41.5 % (32.4-45.2); HEMOGLOBIN 13.5 GM/dL (10.7-15.3); LYMPH % 17.7 % (8-40); MCH 30.3 pg (25.7-33.7); MCHC 32.6 g/dl (32.0-36.0); MEAN CELL VOLUME 92.9 fl (80-96); MEAN PLT VOLUME 11.5 fl (7.5-11.1); MONO % 8.2 % (3.8-10.2); NEUT % 73.3 % (42.8-82.8); PLATELET COUNT 191 10^3/uL (134-434); RBC 4.47 M/mm3 (3.60-5.2); RDW 15.4 % (11.6-15.6); WHITE BLOOD COUNT 8.6 K/mm3 (4.0-10.0)
[2023-05-02 12:37] LABS: INR 0.9 (0.83-1.09); PROTHROMBIN TIME (PATIENT) 10.4 SEC (9.7-13.0)
[2023-05-02 12:40] LABS: ACTIVATED PTT 24.6 SECONDS (25.2-36.5)
[2023-05-02] MEDS ORDERED: DEXTROSE 5%-NORMAL SALINE 1,000 ML IV SCH (12:45)
[2023-05-02 12:53] LABS: POTASSIUM 4.2 mmol/L (3.5-5.1)
[2023-05-02 12:55] LABS: ALBUMIN 2.4 g/dl (3.4-5.0); BLOOD UREA NITROGEN 10.1 mg/dL (7-18); CALCIUM 8.5 mg/dL (8.5-10.1)
[2023-05-02 12:56] LABS: GAMMA GLUTAMYL TRANSPEPTIDASE 23 U/L (5-85)
[2023-05-02 12:57] LABS: SGOT/AST 13 U/L (15-37); SGPT/ALT 20 U/L (13-61)
[2023-05-02 12:58] LABS: CREATININE 0.6 mg/dL (0.55-1.3); URIC ACID 6.4 mg/dL (2.6-7.2)
[2023-05-02 13:00] LABS: BILIRUBIN,TOTAL 0.1 mg/dL (0.2-1); TOT PROT 5.7 g/dl (6.4-8.2)
[2023-05-02 13:12] VITALS: PULSE 81
[2023-05-02 13:16] VITALS: BP 151/98
[2023-05-02 13:49] LABS: HIV INTERPRETATION NEGATIVE (NEGATIVE)
== END 2023-05-02 13:06 | disposition short-term general hospital (02) | DRG 566 ==
LOC: JDEL 09:39 → JLDR 10:40
PROVIDERS: ADMIT Obstetrics & Gynecology; ATTEND Obstetrics & Gynecology
DX: O41.03X0 Oligohydramnios, third trimester, not applicable or unspecified (principal); O36.5930 Maternal care for other known or suspected poor fetal growth, third trimester, not applicable or unspecified; Z3A.30 30 weeks gestation of pregnancy
CPT/HCPCS: 36415; 59025; 80048; 80053; 82977; 83010; 84450; 84460; 84550; 85025; 85032; 85045; 85610; 85730; 86780; 86850; 86900; 86901; 87389; 87635

== ENCOUNTER 2023-05-14 09:45 | Emergency (ER) | payer OTHER ==
[2023-05-14 09:55] VITALS: BP 114/61; PULSE 96; RESP 18; TEMP 97.7; BMI 35.9
[2023-05-14] MEDS ORDERED: ACETAMINOPHEN 1000 MG/100 ML BAG IVPB ONE (10:40)
[2023-05-14] MEDS ORDERED: SODIUM CHLORIDE 0.9% 500 ML INFUS.BAG IV ONE (10:41)
[2023-05-14] MEDS ORDERED: ACETAMINOPHEN INJECTION 100 ML IVPB ONE (10:59)
[2023-05-14 11:16] LABS: BASO % 0.5 % (0-2.0); EOS % 0.8 % (0-4.5); HEMATOCRIT 42.9 % (32.4-45.2); HEMOGLOBIN 14.4 GM/dL (10.7-15.3); LYMPH % 31.1 % (8-40); MCH 30.5 pg (25.7-33.7); MCHC 33.5 g/dl (32.0-36.0); MEAN CELL VOLUME 91.1 fl (80-96); MEAN PLT VOLUME 9.1 fl (7.5-11.1); MONO % 6.1 % (3.8-10.2); NEUT % 61.5 % (42.8-82.8); PLATELET COUNT 280 10^3/uL (134-434); RBC 4.71 M/mm3 (3.60-5.2); RDW 14.7 % (11.6-15.6); WHITE BLOOD COUNT 4.3 K/mm3 (4.0-10.0)
[2023-05-14 11:39] LABS: POTASSIUM 4.4 mmol/L (3.5-5.1)
[2023-05-14 11:41] LABS: CALCIUM 9.3 mg/dL (8.5-10.1)
[2023-05-14 11:42] LABS: BLOOD UREA NITROGEN 10.8 mg/dL (7-18)
[2023-05-14 11:45] LABS: CREATININE 0.8 mg/dL (0.55-1.3)
[2023-05-14 11:47] LABS: TOT PROT 7.2 g/dl (6.4-8.2)
[2023-05-14 11:48] LABS: BILIRUBIN,TOTAL 0.2 mg/dL (0.2-1)
[2023-05-14 14:18] LABS: EPI CELLS 33 /uL (0-25.1); HYALINE CASTS 0 /uL (0-3.1); URINE APPEARANCE CLEAR; URINE BACTERIA 210 /uL (0-1359); URINE BILIRUBIN NEGATIVE (NEGATIVE); URINE COLOR YELLOW; URINE GLUCOSE (UA) NEGATIVE (NEGATIVE); URINE KETONE NEGATIVE (NEGATIVE); URINE LEUK ESTERASE NEGATIVE (NEGATIVE); URINE NITRITE NEGATIVE (NEGATIVE); URINE PROTEIN 2+ (NEGATIVE); URINE RBC 20 /uL (0-23.9); URINE UROBILINOGEN 0.2 mg/dL (0.2-1.0); URINE WBC 45 /uL (0-25.8)
[2023-05-14] MEDS ORDERED: SULFAMETHOXAZOLE/TRIMETHOPRIM 800MG/160MG D.S. TABLET PO ONE (15:42)
[2023-05-14] MEDS ORDERED: SULFAMETHOXAZOLE/TRIMETHOPRIM 800MG/160MG D.S. TABLET ONE (15:47)
== END 2023-05-14 15:53 | disposition home or self-care (01) ==
LOC: JER 09:45
PROC: 3E033NZ Introduction of Analgesics, Hypnotics, Sedatives into Peripheral Vein, Percutaneous Approach (ICD-10-PCS; principal; 2023-05-14)
DX: T81.31XA Disruption of external operation (surgical) wound, not elsewhere classified, initial encounter (principal); R10.9 Unspecified abdominal pain; G89.18 Other acute postprocedural pain; Y83.8 Other surgical procedures as the cause of abnormal reaction of the patient, or of later complication, without mention of misadventure at the time of the procedure
CPT/HCPCS: 36415; 74177-TC; 80053; 81003; 85025; 87086; 99285-25; Q9967